=== PATIENT | male | born 1950 | race Caucasian/White ===

== ENCOUNTER → 2016-09-05 | Outpatient (CLI) | payer MEDICARE ==
[~2016-09-05] MED LIST: ASPI-611 PO; BENA20TA45 PO; OMEP-29 PO; RANI-45 PO; ROSU20TA11 PO; VICTOZA 18MG/3ML SQ
== END ==
LOC: IMA 10:11
PROVIDERS: ATTEND Registered Nurse
DX: Z13.820 Encounter for screening for osteoporosis (principal); E55.9 Vitamin D deficiency, unspecified; Z87.828 Personal history of other (healed) physical injury and trauma